=== PATIENT | female | born 1975 | race Caucasian/White ===

== ENCOUNTER 2020-03-06 07:05 | Outpatient (NON) | payer OTHER, SELFPAY ==
[2020-03-06 19:10] LABS: SARS-CoV-2 RNA PCR Negative
== END 2020-03-06 07:06 ==
LOC: ANHCOVIDDT 07:31
PROVIDERS: PCP Internal Medicine; Visit Provider Clinical Nurse Specialist
DX: R05 Cough (principal); Z20.828 Contact with and (suspected) exposure to other viral communicable diseases
CPT/HCPCS: 87635; C9803; U0003

== ENCOUNTER 2020-10-29 16:36 | Outpatient (CLI) | payer OTHER, SELFPAY ==
[2020-10-29 16:53] LABS: Basophils Percent Auto 0.3 % (0.2-1.2); Eosinophils Absolute Auto 0.1 K/mm3 (0-0.3); Eosinophils Percent Auto 1.3 % (0-4.4); Hematocrit 40.8 % (37.0-47.0); Hemoglobin 13.4 g/dL (12.0-15.0); Immature Granulocyte Absolute 0.03 K/mm3 (0.00-0.031); Immature Granulocyte Percent A 0.3 % (0-0.5); Lymphocytes Absolute Auto 3.63 K/mm3 (0.9-3.2); Lymphocytes Percent Auto 32.9 % (18.3-44.2); Mean Corpuscular HGB Conc 32.8 g/dl (32-36); Mean Corpuscular Hemoglobin 30.2 pg (26-34); Mean Corpuscular Volume 92.1 fl (80-100); Mean Platelet Volume 9.7 fl (7.4-10.4); Monocytes Absolute Auto 0.9 K/mm3 (0.1-0.6); Monocytes Percent Auto 7.8 % (2.6-8.5); Neutrophils Absolute Auto 6.4 K/mm3 (1.3-6.7); Neutrophils Percent Auto 57.4 % (45.5-73.1); Platelet Count Result 238 k/mm3 (150-375); Red Blood Count 4.43 M/mm3 (4.2-5.4); Red Cell Distribution Width 12.2 % (11.5-14.5)
[2020-10-29 17:25] LABS: Alanine Aminotransferase 16 U/L (4-35); Albumin Level 4.6 g/dL (3.5-5.1); Alkaline Phosphatase 51 U/L (38-126); Anion Gap 8 mmol/L (8-16); Aspartate Amino Transferase 23 U/L (14-36); Bilirubin,Total 0.3 mg/dL (0.2-1.3); Blood Urea Nitrogen 14 mg/dL (7-17); Calcium 9.7 mg/dL (8.4-10.2); Carbon Dioxide 25 mmol/L (22-30); Chloride 105 mmol/L (98-107); Cholesterol 187 mg/dL (0-200); Estimated Glomerular Filt Rate > 60; Glucose 107 mg/dL (65-110); HDL Direct 72 mg/dL; Potassium 4.1 mmol/L (3.4-5.0); Sodium 138 mmol/L (137-145); Triglycerides 98 mg/dL (<150)
[2020-10-29 17:36] LABS: LDL Cholesterol Direct 89 mg/dL
== END 2020-10-29 16:37 | disposition home or self-care (01) ==
LOC: ANHLAB 16:38
PROVIDERS: PCP Internal Medicine; Visit Provider Nurse Practitioner
DX: R53.83 Other fatigue (principal); E78.5 Hyperlipidemia, unspecified; I10 Essential (primary) hypertension
CPT/HCPCS: 36415; 80053; 80061; 85025

== ENCOUNTER 2020-11-05 16:20 | Outpatient (CLI) | payer OTHER, SELFPAY ==
[2020-11-05 17:49] LABS: Thyroid Stimulating Hormone 0.689 uIU/mL (0.465-4.680)
== END 2020-11-05 16:21 | disposition home or self-care (01) ==
LOC: ANHLAB 16:22
PROVIDERS: PCP Internal Medicine; Visit Provider Nurse Practitioner
DX: R53.83 Other fatigue (principal)
CPT/HCPCS: 36415; 84443

== ENCOUNTER 2020-11-12 07:40 | Outpatient (CLI) | payer OTHER, SELFPAY ==
--- NOTE | ~2020-11-12 | MR_ITS ---
EXAMINATION: MR brain/brain stem wo/w con DATE: 11/12/2020 09:23 INDICATION: Dizziness and giddiness. TECHNIQUE: Magnetic resonance imaging (MRI) of the brain and brainstem was performed without and with 15 mL MultiHance intravenous contrast. Sequences included sagittal and axial T1-weighted FSE, axial diffusion-weighted FS EPI, axial T2*-weighted GRE, axial T2-weighted FLAIR Propeller, and axial T2-we ighted Propeller. Postcontrast sequences included axial and coronal T1-weighted FSE. Apparent diffusi on coefficient (ADC) maps were created. COMPARISON: None. FINDINGS: There is no intracranial hemorrhage, acute infarction, or abnormal intracranial mass lesion . The ventricles are normal in size. The orbits are normal. The paranasal sinuses are clear. The mast oid air cells are normal. IMPRESSION: 1. Normal brain. Reviewed, dictated and finalized at location A. IMPRESSION: 1. Normal brain.
== END 2020-11-12 07:41 | disposition home or self-care (01) ==
LOC: ANHIMG 07:42
PROVIDERS: PCP Internal Medicine; Visit Provider Nurse Practitioner
DX: R42 Dizziness and giddiness (principal)
CPT/HCPCS: 70553; A9577

== ENCOUNTER 2021-06-23 15:16 | Outpatient (CLI) | payer OTHER, SELFPAY ==
--- NOTE | ~2021-06-23 | US_ITS ---
EXAMINATION: US pelvic complete w TV EXAM DATE: 06/23/2021 16:05 INDICATION: R10.2 - Pelvic and perineal pain. TECHNIQUE: Pelvic transabdominal and transvaginal sonogram was performed. There are multiple graysca le and Doppler images available for interpretation. Comparison is made to prior examination from 2012. FINDINGS: Uterus measures 9.3 x 9.7 x 8.1 cm, with fibroids. Largest is exophytic, measures 4.5 cm. Endometrial stripe measures 9 mm, within normal limits. There is no free pelvic fluid. Right adnexa: The ovary is not identified. There is no adnexal mass. Left adnexa: The ovary is not identified. There is no adnexal mass. IMPRESSION: Multiple fibroids. Reviewed, dictated and finalized at location G. IMPRESSION: Multiple fibroids.
== END 2021-06-23 15:17 | disposition home or self-care (01) ==
LOC: ANHIMG 15:18
PROVIDERS: PCP Internal Medicine; Visit Provider Obstetrics & Gynecology
DX: R10.2 Pelvic and perineal pain (principal); D25.9 Leiomyoma of uterus, unspecified
CPT/HCPCS: 76830; 76856

== ENCOUNTER 2021-08-12 08:56 | Outpatient (CLI) | payer OTHER, SELFPAY | END 2021-08-12 08:57 | disposition home or self-care (01) | PROVIDERS: PCP Internal Medicine; Visit Provider Obstetrics & Gynecology | DX: D25.9 Leiomyoma of uterus, unspecified (principal) | CPT/HCPCS: 36415; 86850; 86900; 86901 ==

== ENCOUNTER 2021-08-16 01:29 | Day surgery (SDC) | payer OTHER, SELFPAY ==
[2021-08-11 14:22] VITALS: BMI 50.4
--- NOTE | 2021-08-11 14:32 | SUR.PREOP ---
Report to the Outpatient Waiting Room, entrance under the green pavilion located off [facility], at time 6am on date Monday08/16/2021. OR Time: 730_. - You and your visitor will be asked a series of questions to screen for COVID 19 for your protection. - Only one visitor is allowed at this time. - The patient visitor is requested to leave or wait in car when not with patient. - A mask is required within the hospital. Patients may have clear liquids (water, carbonated beverages, clear teas, apple juice) until 3 hours prior to surgery with a maximum of 20 ounces. - No food from midnight until time of surgery Take the following medications with a SIP of water the morning of surgery: NA Medications to discontinue per physician NA Date to take last dose NA Please no make-up, nail divehi, hairspray, perfume, deodorant, or body powder the day of surgery. No jewelry (including any body piercings) or valuables the day of surgery, leave them at home. Please take a shower or bath the night before, or the morning of, surgery with an antibacterial soap. Wear comfortable, loose fitting clothing. Children are encouraged to wear pajamas. - Jewelry must be removed prior to entering the operating room. Rings and piercings that are not removed may be cut off. - The hospital will not accept responsibility for valuables. - Please leave all valuables, including medications, at home the day of surgery. If you are going home after surgery, a licensed drivers license examiner must drive you home. - NO public transportation without another adult. - We recommend that an adult stay with you for 24 hours following discharge. - We also recommend that you do not drive, make important decision, drink alcoholic beverages, or take any drugs that were not prescribed by your health care provider for at least 24 hours after your discharge time. Follow any additional instructions given to you from your surgeon. If you or anyone in your household have experienced Covid symptoms in the past week, please notify your surgeon or the nurse liaison at the phone number below for possible testing. Telephone instructions given to patient Concha and asked if any additional questions and then verbalized understanding. Patient advised to call surgeon office or pre surgery nurse liaison [phone] if any additional questions.
[2021-08-16] VITALS (10 sets, daily range): BP systolic 101–126; BP diastolic 67–79; PULSE 60–79; RESP 14–18; TEMP 36–37.3; O2SAT 94–100; BMI 34.9
[2021-08-16] MEDS: KETOROLAC 15 MG/ML VIAL (*BKC) IV PUSH (06:30)
[2021-08-16] MEDS: ACETAMINOPHEN 500 MG TABLET 1000 MG PO ×3 (06:30→20:19)
--- NOTE | 2021-08-16 07:14 | PM.IMHP ---
H&P: HPI History of Present Illness Date/Time: 08/16/21 07:10 Concha is a 45yo P2002, LMP August 2021 who presents for hysterectomy due to a fibroid uterus causing pain. She reports her cycles are regular, not too heavy. She has however, been having lots of pelvic pain; during her cycle and even randomly; cramping/stabbing and will radiate down her legs. She has a h/o LEEP in past; most recent paps (/2021) all normal. No overt esequiel-menopausal symptoms. or painful. She wants to proceed with hysterectomy. Chief Complaint: pelvic pain Review of Systems Review of Systems: All systems reviewed & are unremarkable except as noted in HPI and below (HPI) PMFSH Past Medical History Medical History Allergies Anxiety Constipation Cyst of breast Heartburn Hypertension Umbilical hernia Surgical History Surgical History H/O colposcopy with cervical biopsy (~05/30/08) Colposcopy - GEOVANNI III H/O colposcopy with cervical biopsy (~09/04/07) GEOVANNI II with glandular involvement H/O LEEP (~07/24/08) hgsil geovanni 3 H/O toe surgery History of oral surgery Family History Family History Mother Family history of diabetes mellitus in first degree relative Diabetes mellitus Father Family history of benign prostatic hyperplasia Malignant neoplasm of prostate Other Family history of malignant neoplasm of male breast Family history of malignant neoplasm of ovary Social History Social History Smoking packs per day: 0.25 Smoking cigarettes per day: 5.0 Years smoked: 20 Smoking pack-years: 5.00 Smoking status: Current every day smoker Tobacco type: cigarettes Second hand tobacco smoke exposure: Yes Alcohol intake: current Drinks per week: 14 Alcohol use details: occasional Substance use: never Substance use type: does not use Living arrangements: with family 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 Gender identity (if verbalized by the patient): Female Sexual Orientation (if Verbalized by the Patient): Straight or Heterosexual Spiritual care concerns: No Meds Home Medications and Allergies Home Medications Medication Instructions Recorded Confirmed Type hydroxyzine HCl 25 mg tablet 25 mg PO Q6H PRN #30 tablet 04/01/21 08/11/21 Rx omeprazole magnesium 20 mg 20 mg PO DAILY #90 cap 04/01/21 08/11/21 Rx capsule,delayed release Allergies Allergy/AdvReac Type Severity Reaction Status Date / Time No Known Allergies Allergy Verified 08/16/21 06:59 Exam Const: General: cooperative, healthy appearing, comfortable and no acute distress Resp: Effort & Inspection: normal respiratory effort Cardio: Rate: regular rate GI: Inspection: normal to inspection GI Palp: Yes Soft to palpation and No Tenderness to palpation present (GI) : Other: 10wk size fibroid uterus noted on exam in clinic Skin: General skin exam: normal color Neuro: General: patient oriented x3 Extrem: General: normal to inspection Psych: Appearance: grossly normal Affect: normal affect Attitude: cooperative Assessment and Plan Assessment and plan (1) Fibroid uterus: Qualifiers: Uterine leiomyoma location: intramural and subserous Qualified Code(s): D25.1 - Intramural leiomyoma of uterus; D25.2 - Subserosal leiomyoma of uterus Code(s): D25.9 - Leiomyoma of uterus, unspecified Status: Acute (2) Pelvic pain in female: Code(s): R10.2 - Pelvic and perineal pain Status: Acute Additional Plan - US and examine reveal fibroid uterus; all options discussed - pt desires to proceed with definitive management via hysterectomy - Proceed with robotic assisted total laparoscopic hysterectomy, bilateral salpingectomy, with cyst
--- NOTE | 2021-08-16 07:15 | WPDHPUPDATE1 ---
History and Physical Update Update Date/Time: 08/16/21 07:15 History and Physical has been reviewed, including an updated exam of the patient. There are NO changes in the patient's condition. Risks, benefits, and alternatives have been discussed and questions answered. Patient agrees to proceed with procedure.
--- NOTE | 2021-08-16 07:18 | WPDANESEPPF ---
Anes - Initial Pre Proc Eval Procedure: Operation Date: 08/16/21 07:30 Proposed Procedures p Robotic Assisted Total Laparoscopic Hysterectomy with Bilateral Salpingectomy, - Shari Darnell MD s Cystoscopy - Shari Darnell MD Date/Time: 08/16/21 07:18 Surgeon: Shari Darnell MD Pre Op Diagnosis: Uterine Fibroid Patient Data Age: 45 Gender: F Height: 1.52 m Weight: 81.25 kg Last Vital Signs Temp 36.0 C L 08/16/21 06:40 Pulse 79 08/16/21 06:40 Resp 14 08/16/21 06:40 BP 115/75 08/16/21 06:40 Pulse Ox 97 08/16/21 06:40 Allergies Allergy/AdvReac Type Severity Reaction Status Date / Time No Known Allergies Allergy Verified 08/16/21 06:59 Home Medications Medication Instructions Recorded Confirmed Type hydroxyzine HCl 25 mg tablet 25 mg PO Q6H PRN #30 tablet 04/01/21 08/11/21 Rx omeprazole magnesium 20 mg 20 mg PO DAILY #90 cap 04/01/21 08/11/21 Rx capsule,delayed release Patient hx anesthesia problems: none Family hx anesthesia problems: none Results Review: All pre-operative results and documents have been reviewed as part of the pre-operative evaluation. [facility] Past Medical History Medical History Allergies Anxiety Constipation Cyst of breast Heartburn Hypertension Umbilical hernia Surgical History Surgical History H/O colposcopy with cervical biopsy (~05/30/08) Colposcopy - ERIC III H/O colposcopy with cervical biopsy (~09/04/07) ERIC II with glandular involvement H/O LEEP (~07/24/08) hgsil eric 3 H/O toe surgery History of oral surgery Family History Family History Mother Family history of diabetes mellitus in first degree relative Diabetes mellitus Father Family history of benign prostatic hyperplasia Malignant neoplasm of prostate Other Family history of malignant neoplasm of male breast Family history of malignant neoplasm of ovary Social History Social History Smoking packs per day: 0.25 Smoking cigarettes per day: 5.0 Years smoked: 20 Smoking pack-years: 5.00 Smoking status: Current every day smoker Tobacco type: cigarettes Second hand tobacco smoke exposure: Yes Alcohol intake: current Drinks per week: 14 Alcohol use details: occasional Substance use: never Substance use type: does not use Living arrangements: with family 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 Gender identity (if verbalized by the patient): Female Sexual Orientation (if Verbalized by the Patient): Straight or Heterosexual Spiritual care concerns: No Anes - Eval Final PreProcedure Day of Procedure 08/16/21 07:18 Patient weight: overweight Heart: regular rate and rhythm Lungs: clear to auscultation and normal air movement Airway: Mallampati scale class II Neurological: alert and oriented Last oral intake: >/= 8 hours ASA classification: II Emergent: no Anesthetic plan: proceed Anesthesia type and monitoring: general ETT Results Review: All pre-operative results and documents have been reviewed as part of the pre-operative evaluation. Informed Consent: The patient's anesthetic plan and its attendant risks and benefits were discussed with the patient/family/POA. Questions were solicited and answers provided to the satisfaction of the patient/family/POA.
[2021-08-16] MEDS: ceFAZolin 2 GM/D5W 50 ML 2 GM/50 ML BAG IVPB (07:26)
[2021-08-16] MEDS: LACTATED RINGERS 1,000 ML 30 ML IV CONT ×2 (07:30→09:52)
[2021-08-16] MEDS: LIDO 1%/EPINEPHRINE 1:100,000 50 ML VIAL INFILTRATE (08:34)
--- NOTE | 2021-08-16 09:54 | W.PM.PROC2 ---
Procedure Note - Detailed Date of Procedure 08/16/21 Pre-op Diagnosis Uterine Fibroid Post-op Diagnosis Same Procedure Performed Robotic assisted total laparoscopic hysterectomy, bilateral salpingectomy, with cystoscopy Surgeon Shari Darnell MD Child Development Specialist [place] [facility] Anesthesia General Findings Uterus sounded to 10cm; cervix with history of leep noted. Uterus with multiple fibroids; fundal and left posterior/lateral (in broad ligament) noted to be the largest, multiple other small ones noted throughout. Normal fallopian tubes and ovaries. Normal bladder without defects; bilateral ureteral efflux noted. Good hemostasis at end of case. Description of Procedure Concha was taken to the operating room where she was placed under general anesthesia without issues. She received 2 g Ancef. She was then prepped and draped in the usual sterile fashion in the dorsal lithotomy position with her legs in low Justin stirrups and her arms tucked at her side. A time-out was performed. My attention was turned down below where a haley catheter was placed. A bivalve speculum was placed within the vagina. The cervix was easily identified and the anterior lip of the cervix was grasped with single-tooth tenaculum. The uterus was then sounded to 10cm. The cervix was serially dilated to allow for the WILMER uterine manipulator; which was placed w/o issue (8cm uterine tip with 3cm cervical ring). My gloves were changed and attention was then turned to the abdomen. A supraumbilical incision was made, and a 5 mm trocar was placed under direct visualization. Once intra-abdominal placement was confirmed, the abdomen was insufflated with carbon dioxide gas. An abdominal survey was performed and the above findings were noted. Two additional ports were placed on each side under direct visualization without issues. The patient was then placed in deep Trendelenburg, with the legs slightly lowered. The robot was then docked. The instruments were placed intra-abdominally under direct visualization. I then un-scrubbed and went to the robotic console. I then started my hysterectomy on the right side. The ureter was easily identified transperitoneally and well out of the surgical field. The fallopian tube was elevated and the mesosalpinx was coagulated and transected. The round ligament was clamped, coagulated, and transected. The uterine ovarian artery was then serially clamped, coagulated, and transected with good hemostasis. The broad ligament was then dissected anteriorly and posteriorly skeletonizing the uterine artery. The bladder flap was then developed on the right side and carried around the left, anteriorly. The uterine artery was then serially clamped and coagulated. Once the vessel was adequately coagulated, it was then transected with good hemostasis. The same procedure was then performed on the left side without complications. The uterus was noted to be devascularized. The bladder flap was verified out of the surgical field and the colpotomy was started anteriorly and continued in a clockwise fashion until the uterus was released. The uterus was unable to be removed vaginally due to the large fibroids. The broad ligament (left anteriorly/lateral) fibriod was removed and the uterus was once again attempted to be removed, but was unable. The uterus was then bivalved into two pieces.The uterine pieces were then removed from the abdomen via the vagina without complications. The vaginal cuff was then reapproximated using a 0 V lock suture. The pelvis was then irrigated and suctioned free of all clots and debris. Good hemostasis was noted. All instruments were removed from the abdomen and the robot was undocked. I then scrubbed back in and verified that the cuff was intact without any defects. The Haley catheter was then removed. The cystoscope was placed within the bladder, which filled without difficulty. Bilateral ureteral efflux was noted. The bladder was examined and no defe
[2021-08-16] MEDS: fentaNYL CITRATE INJ (*CRX) 100 MCG/2 ML VIAL 25 MCG IV PUSH ×6 (10:01→10:52)
--- NOTE | 2021-08-16 11:07 | PC.NURSE ---
This patient, Concha Lu, was received from PACU on 08/16/21 at 1107. Patient/family oriented to unit policies and routines
[2021-08-16] MEDS: KETOROLAC 30 MG/ML VIAL (*BKC) IV PUSH ×2 (11:34→17:34)
[2021-08-16] MEDS: oxyCODONE HCL (*CRX) 5 MG TAB IR PO ×2 (13:22→16:07)
[2021-08-16] MEDS: DOCUSATE SODIUM 100 MG CAPSULE PO (17:34)
[2021-08-16] MEDS: IBUPROFEN 600 MG TABLET PO (22:13)
[2021-08-16] MEDS: oxyCODONE HCL (*CRX) 5 MG TAB IR 10 MG PO (22:14)
[2021-08-17] MEDS: ACETAMINOPHEN 500 MG TABLET 1000 MG PO ×2 (01:55→07:41)
[2021-08-17 04:00] VITALS: BP 106/68; PULSE 72; RESP 16; TEMP 36.5
[2021-08-17] MEDS: IBUPROFEN 600 MG TABLET PO ×2 (04:30→09:33)
[2021-08-17] MEDS: oxyCODONE HCL (*CRX) 5 MG TAB IR PO ×2 (04:30→09:33)
[2021-08-17 05:02] LABS: Basophils Percent Auto 0.2 % (0.2-1.2); Eosinophils Percent Auto 0.2 % (0-4.4); Hematocrit 36.9 % (37.0-47.0); Hemoglobin 12.6 g/dL (12.0-15.0); Immature Granulocyte Absolute 0.05 K/mm3 (0.00-0.031); Immature Granulocyte Percent A 0.4 % (0-0.5); Lymphocytes Absolute Auto 3.48 K/mm3 (0.9-3.2); Lymphocytes Percent Auto 27.1 % (18.3-44.2); Mean Corpuscular HGB Conc 34.1 g/dl (32-36); Mean Corpuscular Hemoglobin 30.5 pg (26-34); Mean Corpuscular Volume 89.3 fl (80-100); Mean Platelet Volume 9.5 fl (7.4-10.4); Monocytes Absolute Auto 1.1 K/mm3 (0.1-0.6); Monocytes Percent Auto 8.7 % (2.6-8.5); Neutrophils Absolute Auto 8.2 K/mm3 (1.3-6.7); Neutrophils Percent Auto 63.4 % (45.5-73.1); Platelet Count Result 262 k/mm3 (150-375); Red Blood Count 4.13 M/mm3 (4.2-5.4); Red Cell Distribution Width 11.9 % (11.5-14.5); White Blood Count 12.9 K/mm3 (4.5-10.0)
[2021-08-17 05:13] LABS: Anion Gap 6 mmol/L (8-16); Blood Urea Nitrogen 6 mg/dL (7-17); Calcium 8.4 mg/dL (8.4-10.2); Carbon Dioxide 25 mmol/L (22-30); Chloride 105 mmol/L (98-107); Estimated CRCL calculation 97 ml/min; Estimated Glomerular Filt Rate > 60; Glucose 102 mg/dL (65-110); Potassium 3.6 mmol/L (3.4-5.0); Sodium 136 mmol/L (137-145)
--- NOTE | 2021-08-17 07:14 | PM.GYNPNOP ---
COMPUTER PROGRAMMER CHIEF - A/P Assessment and plan (1) S/P hysterectomy: Code(s): Z90.710 - Acquired absence of both cervix and uterus Status: Acute Postoperative Procedures: Procedures Operation Date: 08/16/21 07:30 Actual Procedure Side Surgeon p Robotic Assisted Total Laparoscopic Hysterectomy with Bilateral Salpingectomy, Bilateral Shari Darnell MD s Cystoscopy Shari Darnell MD Postoperative day: 1 Postoperative status: doing well Postoperative plan: routine post-op care, discharge and other (pelvic rest, no heavy lifting, take meds as rx'ed, ER return precautions, & incision care all discussed) Time Spent With Patient Time: Total time spent is greater than 50% in coordination of care (as documented) at patient's floor/unit and/or counseling patient: Time with patient: less than 15 minutes COMPUTER PROGRAMMER CHIEF- PN:Subj Post-Op Subjective Date/time seen: 08/17/21 07:14 POD#1 Concha reports doing well today. Her pain is controlled. She has voided and passed gas. She has ambulated w/o issues. She has tolerated regular diet. She denies vaginal bleeding or discharge. She is ready to go home. Review of Systems Constitutional: Constitutional: Denies chills, Denies fever(s) and Denies headache(s) Eyes: Eyes: Denies change in vision ENT: Denies dizziness and Denies headache(s) Cardiovascular: Cardiovascular: Denies chest pain, Denies palpitations and Denies dyspnea Respiratory: Respiratory: Denies cough and Denies dyspnea Gastrointestinal: Gastrointestinal: Denies abdominal pain, Denies change in bowel habits, Denies nausea and Denies vomiting Genitourinary: Genitourinary: Denies abnormal vaginal bleeding, Reports pelvic pain (appropriate), Denies vaginal discharge, Denies vaginal odor and Denies vaginal pruritus Neurologic: Denies dizziness and Denies headache(s) Endocrine: Endocrine: Denies palpitations Exam Const: General: cooperative, comfortable and no acute distress Orientation/consciousness: oriented to person, oriented to place and oriented to time Resp: Effort & Inspection: normal respiratory effort Auscultation: clear to auscultation bilaterally Cardio: Rate: regular rate GI: Inspection: incision (healing w/o signs of infection) GI Palp: Yes Soft to palpation and Yes Tenderness to palpation present (GI) (appropriately) Auscultation: normal bowel sounds Neuro: General: oriented to person, oriented to place and oriented to time COMPUTER PROGRAMMER CHIEF - PN: Obj Data Vital Signs Vital Signs: Vital Signs - 24 hr 08/16/21 09:52 08/16/21 10:05 08/16/21 10:20 Temperature 97.4 F L Pulse Rate 70 64 63 Respiratory Rate 15 16 15 Blood Pressure 123/73 123/78 126/73 Pulse Oximetry 100 100 100 08/16/21 10:35 08/16/21 10:50 08/16/21 11:15 Temperature 97.6 F Pulse Rate 62 60 61 Respiratory Rate 14 14 16 Blood Pressure 123/79 116/70 108/75 Pulse Oximetry 100 94 95 08/16/21 15:30 08/16/21 19:00 08/16/21 22:29 Temperature 97.0 F L 98.6 F 99.1 F Pulse Rate 68 63 71 Respiratory Rate 18 18 18 Blood Pressure 120/67 108/74 101/68 Pulse Oximetry 99 08/17/21 04:00 Temperature 97.7 F Pulse Rate 72 Respiratory Rate 16 Blood Pressure 106/68 Pulse Oximetry Intake/Output Intake/Output: Intake & Output 08/14/21 08/15/21 08/16/21 08/17/21 23:59 23:59 23:59 23:59 Intake Total 2250 Output Total 1000 Balance 1250 Meds/Results Medications: Active Medications Generic Name Dose Route Start Last Admin Trade Name Freq PRN Reason Stop Dose Admin Acetaminophen 1,000 mg 08/16/21 11:00 08/17/21 01:55 Acetaminophen 500 Mg Tablet PO 1,000 mg Q6H BETINA Administration Docusate Sodium 100 mg 08/16/21 17:00 08/16/21 17:34 Docusate Sodium 100 Mg Capsule PO 100 mg BID BETINA Administration Ibuprofen 600 mg 08/16/21 10:57 08/17/21 04:30 Ibuprofen 600 Mg Tablet PO 600 mg Q6H PRN Administration Cramping Naloxone HCl 0.1 mg 08/16/21 10:57 Naloxone Hcl 0.4 Mg/Ml Vial IV PUSH
[2021-08-17] MEDS: DOCUSATE SODIUM 100 MG CAPSULE PO (07:41)
[2021-08-17 08:00] VITALS: BP 117/79; PULSE 60; RESP 18; TEMP 36.4; O2SAT 98
--- NOTE | 2021-08-17 09:17 | P.PNAN_ITS ---
Anes - Prog Note Post-Op Date/Time: 08/17/21 09:17 Cardiovascular status: normal Respiratory status: normal Airway patency: baseline Mental status: baseline Post-Op hydration status: normal Vital Signs: Last Vital Signs Temp 97.7 F 08/17/21 04:00 Pulse 72 08/17/21 04:00 Resp 16 08/17/21 04:00 BP 106/68 08/17/21 04:00 Pulse Ox 99 08/16/21 15:30 Pain Score (VAS): 3 Laboratory Tests 08/17/21 04:31 08/17/21 04:31 08/17/21 08/17/21 04:31 04:31 WBC 12.9 H RBC 4.13 L Hgb 12.6 Hct 36.9 L MCV 89.3 MCH 30.5 MCHC 34.1 RDW 11.9 Plt Count 262 MPV 9.5 Immature Gran % (Auto) 0.4 Neut % (Auto) 63.4 Lymph % (Auto) 27.1 [place] % (Auto) 8.7 H Eos % (Auto) 0.2 Baso % (Auto) 0.2 Lymph # (Auto) 3.48 H [place] # (Auto) 1.1 H Eos # (Auto) 0.0 Baso # (Auto) 0.0 Abs Immat Gran (auto) 0.05 H Absolute Neuts (auto) 8.2 H Absolute Nucleated RBC 0.0 Nucleated RBC % 0.0 Sodium 136 L Potassium 3.6 Chloride 105 Carbon Dioxide 25 Anion Gap 6 L BUN 6 L D Creatinine 0.60 L Estim Creat Clear Calc 97 Estimated GFR > 60 Glucose 102 Calcium 8.4 Post-procedural complaints: none Patient Feedback: Patient satisfied with anesthetic care.
== END 2021-08-17 09:50 | disposition home or self-care (01) ==
LOC: ANHSURGERY 05:55 → ANHOB2 11:00
PROVIDERS: PCP Internal Medicine; Visit Provider Obstetrics & Gynecology
PROC: (CPT 58571; principal; 2021-08-16 07:30)
PROC: 0TJB8ZZ Inspection of Bladder, Via Natural or Artificial Opening Endoscopic (ICD-10-PCS; CPT 52000; 2021-08-16 07:30)
DX: D25.2 Subserosal leiomyoma of uterus (principal); D25.1 Intramural leiomyoma of uterus; N80.0 Endometriosis of uterus; R10.2 Pelvic and perineal pain; I10 Essential (primary) hypertension; R12 Heartburn; F17.210 Nicotine dependence, cigarettes, uncomplicated; Z85.41 Personal history of malignant neoplasm of cervix uteri
CPT/HCPCS: 58571; S2900; 36415; 80048; 85025; 88307; 99199; A9270; J0690; J1100; J1170; J1885; J2250; J2370; J2405; J2704; J2710; J3010; J7030; J7120

== ENCOUNTER 2021-09-23 15:04 | Outpatient (CLI) | payer OTHER, SELFPAY ==
--- NOTE | ~2021-09-23 | US_ITS ---
EXAMINATION: US pelvic complete w TV DATE: 09/23/2021 16:02 INDICATION: Pelvic and perineal pain TECHNIQUE: Multiple transabdominal and endovaginal sonographic images of the pelvis were obtained. COMPARISON: 06/23/2021 FINDINGS: There has been interval hysterectomy. The right ovary measures 3.3 x 1.7 x 1.9 cm. The left ovary measures 2.6 x 1.4 x 1.6 cm. There is normal vascular flow in the ovaries. There is no free fl uid in the pelvis. IMPRESSION: 1. No sonographic correlate for the patient's symptoms. Reviewed, dictated and finalized at location F.
== END 2021-09-23 15:05 | disposition home or self-care (01) ==
PROVIDERS: PCP Internal Medicine; Visit Provider Obstetrics & Gynecology
DX: R10.2 Pelvic and perineal pain (principal); N93.9 Abnormal uterine and vaginal bleeding, unspecified
CPT/HCPCS: 76830; 76856

== ENCOUNTER 2022-07-25 12:27 | Outpatient (NON) | payer OTHER, SELFPAY | END 2022-07-25 12:28 | disposition home or self-care (01) | LOC: ANHLAB 07-27 12:30 | PROVIDERS: PCP Internal Medicine; Visit Provider Nurse Practitioner | DX: L82.1 Other seborrheic keratosis (principal) | CPT/HCPCS: 88305 ==